=== PATIENT | female | born 1990 | race Caucasian/White ===

== ENCOUNTER 2022-10-12 15:15 | Outpatient (CLI) | payer BC, SELFPAY ==
--- NOTE | ~2022-10-12 | US_ITS ---
EXAMINATION: US OB transvaginal DATE: 10/12/2022 15:48 INDICATION: Early . Viability. TECHNIQUE: Real-time transvaginal pelvic ultrasound was performed. COMPARISON: None. FINDINGS: The uterus measures 10.4 x 5.1 x 5.8 cm. There is an intrauterine gestational sac. A yolk sac is iden tified. The crown rump length measures 7 mm, which correlates with an estimated gestational ag e of 6 weeks and 4 day(s) (+/-) 4 day(s). heart motion is identified measuring 122 beats per mi nute (bpm) by M-mode Doppler. The right ovary is not visualized. The left ovary measures 4.9 x 3.4 x 3.6 cm. There is no free fluid in the pelvis. IMPRESSION: 1. Single living intrauterine gestation with estimated date of delivery of 06/03/2023. Reviewed, dictated and finalized at location A. [employer] IMPRESSION: 1. Single living intrauterine gestation with estimated date of delivery of 05/15.
== END 2022-10-12 15:16 ==
PROVIDERS: Visit Provider Obstetrics & Gynecology Gynecology
DX: O36.80X0 Pregnancy with inconclusive fetal viability, not applicable or unspecified (principal); Z3A.00 Weeks of gestation of pregnancy not specified
CPT/HCPCS: 76817

== ENCOUNTER → 2022-12-31 15:23 | Outpatient (CLI) | payer BC, SELFPAY ==
--- NOTE | ~2022-12-31 | US_ITS ---
EXAMINATION: US OB /maternal detail DATE: 12/31/2022 16:12 INDICATION: Second trimester anatomic survey TECHNIQUE: Real-time ultrasound of the pelvis was performed. COMPARISON: None. FINDINGS: There is a single living fetus in vertex presentation. The placenta is anterior and 7.7 cm from the i nternal cervical os. The cervical length is 2.7 cm. There is a 2.1 cm hypoechoic area situated betwee n the myometrium and placenta anteriorly, likely a fibroid. heart rate is 152 beats per minute (bpm). cardiac activity and movement are noted. The amniotic fluid index is subjectively normal. The outflow tracts of the heart are not visualized. The following anatomy was identified as nor mal: 4 chamber heart 3 vessel cord cord insertion kidneys urinary bladder stomach spine diaphragm ventricles cisterna magna cerebellum The following biometric data were obtained: Biparietal diameter (BPD): 4.1 cm; head circumference (HC): 15.6 cm; abdominal circumference (AC): 13 .3 cm; femur length (FL): 2.7 cm. These measurements are concordant. Estimated weight is 242 g +/- 36 g, which correlates with the 75th percentile when 06/03/2017 is used as estimated date of delivery. As single measurements, these parameters are each equal to the following estimated gestational ages w ith ranges of +/- 2 standard deviations: BPD: 18 weeks 3 days ( 16 weeks 5 days - 20 weeks 1 days). HC: 18 weeks 4 days ( 17 weeks 0 days - 20 weeks 0 days). AC: 18 weeks 6 days ( 16 weeks 5 days - 20 weeks 6 days). FL: 18 weeks 1 days ( 16 weeks 5 days - 19 weeks 3 days). estimated gestational age based solely on measurements from this exam is 18 weeks 4 days +/- 1 weeks 2 days. IMPRESSION: 1. Single living fetus in vertex presentation. 2. Estimated weight is 242 g +/- 36 g, which correlates with the 75th percentile when 06/03/2017 is used as estimated date of delivery. 3. Outflow tracts the heart is not well demonstrated. Reviewed, dictated and finalized at location L. IMPRESSION: 1. Single living fetus in vertex presentation. 2. Estimated weight is 242 g +/- 36 g, which correlates with the 75th per centile when 06/03/2017 is used as estimated date of delivery. 3. Outflow tracts the heart is not well demonstrated.
== END ==
PROVIDERS: PCP Obstetrics & Gynecology Gynecology; Visit Provider Obstetrics & Gynecology Gynecology
DX: Z36.9 Encounter for antenatal screening, unspecified (principal); Z3A.18 18 weeks gestation of pregnancy
CPT/HCPCS: 76805

== ENCOUNTER → 2023-01-28 14:59 | Outpatient (CLI) | payer BC, SELFPAY ==
--- NOTE | ~2023-01-28 | US_ITS ---
EXAMINATION: US OB follow up DATE: 01/28/2023 15:31 INDICATION: survey follow-up TECHNIQUE: Real-time transabdominal obstetric ultrasound. FINDINGS: Comparison to multiple prior studies sequentially, with oldest reviewed study dated 2021. There is a single living fetus in variable presentation. The placenta is anterior without placenta p revia. Placental margin to the cervix is 9 cm. There is a uterine fibroid anteriorly measuring 2.4 cm . Limited survey demonstrates a normal four-chamber heart. cardiac activity and movement is noted with a heart rate of 171 beats per minute. T he amniotic fluid volume is subjectively normal. The following biometric data were obtained: BPD: 55mm corresponds to gestational age 22 weeks 5 days. Head circumference: 202mm corresponds to gestational age 22 weeks 2 days. Abdominal circumference: 168mm corresponds to gestational age 21 weeks 6 days. Femur length: 37mm corresponds to gestational age 21 weeks 4 days. Estimated weight: 452grams +/- 68grams, 33.5%.] IMPRESSION: 1. Single living intrauterine in variable presentation with an estimated gestational age o f 22 weeks 0 days by inititial ultrasound. Appropriate interval growth. 2. Normal placenta. 3: Limited survey demonstrates a normal four-chamber heart. Reviewed, dictated and finalized at location A. IMPRESSION: 1. Single living intrauterine in variable presentation with an estim ated gestational age of 22 weeks 0 days by inititial ultrasound. Appropriate i nterval growth. 2. Normal placenta. 3: Limited survey demonstrates a normal four-chamber heart.
== END ==
PROVIDERS: PCP Obstetrics & Gynecology Gynecology; Visit Provider Obstetrics & Gynecology Gynecology
DX: Z36.2 Encounter for other antenatal screening follow-up (principal); Z3A.22 22 weeks gestation of pregnancy
CPT/HCPCS: 76816

== ENCOUNTER 2023-03-20 11:02 | Outpatient (CLI) | payer BC, SELFPAY ==
[2023-03-20 14:06] LABS: Alanine Aminotransferase 31 U/L (6-35); Albumin Level 4.2 g/dL (3.5-5.1); Alkaline Phosphatase 96 U/L (38-126); Anion Gap 10 mmol/L (8-16); Aspartate Amino Transferase 39 U/L (14-36); Bilirubin,Total 0.3 mg/dL (0.2-1.3); Blood Urea Nitrogen 10 mg/dL (7-17); Calcium 9.8 mg/dL (8.4-10.2); Carbon Dioxide 20 mmol/L (22-30); Chloride 104 mmol/L (98-107); Estimated Glomerular Filt Rate > 60; Glucose 93 mg/dL (65-110); Potassium 4.2 mmol/L (3.4-5.0); Sodium 134 mmol/L (137-145); Uric Acid 6.2 mg/dL (2.5-7.5)
[2023-03-20 15:03] LABS: Hematocrit 38.8 % (37.0-47.0); Mean Corpuscular HGB Conc 33.5 g/dl (32-36); Mean Corpuscular Hemoglobin 29.3 pg (26-34); Mean Corpuscular Volume 87.4 fl (80-100); Mean Platelet Volume 12.6 fl (7.4-10.4); Platelet Count Result 255 k/mm3 (150-375); Red Blood Count 4.44 M/mm3 (4.2-5.4); Red Cell Distribution Width 13.2 % (11.5-14.5)
== END 2023-03-20 11:03 | disposition home or self-care (01) ==
LOC: ANHLAB 11:04
PROVIDERS: PCP Obstetrics & Gynecology Gynecology; Visit Provider Obstetrics & Gynecology Gynecology
DX: O99.891 Other specified diseases and conditions complicating pregnancy (principal); Z3A.00 Weeks of gestation of pregnancy not specified
CPT/HCPCS: 36415; 80053; 84550; 85027

== ENCOUNTER 2023-03-22 08:21 | Outpatient (CLI) | payer BC, SELFPAY ==
[2023-03-22 09:21] LABS: Alanine Aminotransferase 28 U/L (6-35); Alkaline Phosphatase 90 U/L (38-126); Anion Gap 7 mmol/L (8-16); Aspartate Amino Transferase 33 U/L (14-36); Bilirubin,Total 0.3 mg/dL (0.2-1.3); Blood Urea Nitrogen 11 mg/dL (7-17); Calcium 9.5 mg/dL (8.4-10.2); Carbon Dioxide 22 mmol/L (22-30); Chloride 106 mmol/L (98-107); Estimated Glomerular Filt Rate > 60; Glucose 101 mg/dL (65-110); Potassium 4.3 mmol/L (3.4-5.0); Sodium 135 mmol/L (137-145); Uric Acid 5.6 mg/dL (2.5-7.5)
[2023-03-22 09:33] LABS: Hematocrit 37.9 % (37.0-47.0); Hemoglobin 12.8 g/dL (12.0-15.0); Mean Corpuscular HGB Conc 33.8 g/dl (32-36); Mean Corpuscular Volume 85.9 fl (80-100); Platelet Count Result 220 k/mm3 (150-375); Red Blood Count 4.41 M/mm3 (4.2-5.4); Red Cell Distribution Width 13.2 % (11.5-14.5); White Blood Count 15.3 K/mm3 (4.5-10.0)
[2023-03-22 09:56] LABS: Collection Time Urine 24 HOURS
[2023-03-22 12:04] LABS: Total Protein Urine Random 12 mg/dL
[2023-03-22 12:08] LABS: Creatinine Urine 51.2 mg/dL; Patient Weight 130 Lbs
[2023-03-22 12:54] LABS: Total Protein Urine 24 Hr 372 mg/24hr (28-141); Total Volume 24 Hour Urine 3100 ml
[2023-03-22 12:54] LABS: Creatinine Clearance Urine 290.4 ml/min (75-125); Total Volume 24 Hour Urine 3100 ml
== END 2023-03-22 08:22 | disposition home or self-care (01) ==
LOC: ANHLAB 08:27
PROVIDERS: PCP Obstetrics & Gynecology Gynecology; Visit Provider Obstetrics & Gynecology Gynecology
DX: R79.9 Abnormal finding of blood chemistry, unspecified (principal); O99.891 Other specified diseases and conditions complicating pregnancy; Z3A.00 Weeks of gestation of pregnancy not specified
CPT/HCPCS: 36415; 80053; 81050; 82570; 82575; 84156; 84550; 85027

== ENCOUNTER 2023-03-22 15:16 | Outpatient (CLI) | payer BC, SELFPAY ==
--- NOTE | ~2023-03-22 | US_ITS ---
EXAMINATION: US OB BPP wo non-stress DATE: 03/22/2023 16:57 INDICATION: Hypertension and gestational diabetes, second trimester TECHNIQUE: Real-time pelvic ultrasound was performed. The interpreting radiologist was not present fo r the study. COMPARISON: None. FINDINGS: There is a single living fetus in breech presentation. The placenta is anterior. heart rate is 141 beats per minute (bpm). The amniotic fluid index is 24.9 cm. Biophysical profile performed by the technologist: breathing (30 sec sustained breathing in 30 minutes): 2 out of 2 movement (3 gross body movements in 30 minutes): 2 out of 2 tone (one episode of vktuylw-ornyplfyr-dngczro limb movement): 2 out of 2 Amniotic fluid pocket (2 cm): 2 out of 2 Total score: 8 out of 8 IMPRESSION: 1. Single living fetus in breech presentation. 2. Biophysical profile 8 out of 8. Reviewed, dictated and finalized at location F.
[2023-03-22 16:02] VITALS: BP 143/78; PULSE 83
[2023-03-22 16:16] VITALS: BP 129/65; PULSE 87
[2023-03-22 17:20] VITALS: BP 143/78; PULSE 83
== END 2023-03-22 17:10 | disposition home or self-care (01) ==
LOC: ANHOBOP 15:23 → ANHOBPP 15:24
PROVIDERS: Visit Provider Obstetrics & Gynecology Gynecology
DX: O13.9 Gestational [pregnancy-induced] hypertension without significant proteinuria, unspecified trimester (principal); Z3A.00 Weeks of gestation of pregnancy not specified
CPT/HCPCS: 59025; 76819; 99199

== ENCOUNTER 2023-05-12 18:10 | Outpatient (RCR) | payer BC, SELFPAY ==
[2023-03-26 11:13] VITALS: BP 123/67; PULSE 85
[2023-03-29 13:31] VITALS: BP 152/80; PULSE 90
[2023-03-29 13:46] VITALS: BP 143/66; PULSE 89
[2023-03-29 14:01] VITALS: BP 147/69; PULSE 89
[2023-03-29 14:35] VITALS: BP 143/66; PULSE 89
[2023-04-02 11:22] VITALS: BP 130/66; PULSE 84
[2023-04-05 11:23] VITALS: BP 123/67; PULSE 84
[2023-04-13 12:20] VITALS: BP 131/71; PULSE 80
[2023-04-16 11:53] VITALS: BP 134/71; PULSE 78
[2023-04-19 12:00] VITALS: BP 130/62; PULSE 81
[2023-04-23 11:39] VITALS: BP 134/68; PULSE 81
[2023-04-26 11:55] VITALS: BP 131/66; PULSE 78
[2023-04-30 11:31] VITALS: BP 133/82; PULSE 75
[2023-04-30 11:41] VITALS: BP 133/82; PULSE 79
[2023-05-03 11:57] VITALS: BP 129/66; PULSE 80
[2023-05-07 11:40] VITALS: BP 126/72; PULSE 78
[2023-05-10 11:52] VITALS: BP 126/83; PULSE 79
--- NOTE | ~2023-05-12 | US_ITS ---
EXAMINATION: US OB BPP wo non-stress DATE: 05/10/2023 12:20 INDICATION: Hypertension during third trimester . TECHNIQUE: Real-time pelvic ultrasound was performed. The interpreting radiologist was not present fo r the study. COMPARISON: 05/03/2023 FINDINGS: There is a single living fetus in vertex presentation. The placenta is anterior. heart rate is 128 beats per minute (bpm). Biophysical profile performed by the technologist: breathing (30 sec sustained breathing in 30 minutes): 2 out of 2 movement (3 gross body movements in 30 minutes): 2 out of 2 tone (one episode of uvzdnos-ymvixoryp-hdnaaaw limb movement): 2 out of 2 Amniotic fluid pocket (2 cm): 2 out of 2 Total score: 8 out of 8 IMPRESSION: 1. Single living fetus in vertex presentation with heart rate of 128 bpm. 2. Biophysical profile 8 out of 8. Reviewed, dictated and finalized at location A.
--- NOTE | ~2023-05-12 | US_ITS ---
EXAMINATION: US OB BPP wo non-stress DATE: 03/29/2023 14:28 CDT INDICATION: Preeclampsia TECHNIQUE: Real-time transabdominal obstetric ultrasound. FINDINGS: Comparison to 03/22/2023 There is a single living fetus in transverse left presentation. The placenta is anterior. cardiac activity and movement is noted with a heart rate of 153 beats per minute. Biophysical profile: breathin of 2 movement: 2 of 2 tone: 2 of 2 Amniotic flud pocket: 2 of 2 Total score: 8 of 8 IMPRESSION: 1. Single living intrauterine in transverse left presentation. 2: Total biophysical profile score of 8/8. Reviewed, dictated and finalized at location []
--- NOTE | ~2023-05-12 | US_ITS ---
EXAMINATION: US OB BPP wo non-stress DATE: 05/03/2023 11:56 INDICATION: Gestational diabetes. Preeclampsia. Third trimester. TECHNIQUE: Real-time pelvic ultrasound was performed. COMPARISON: Ultrasound 04/26/2023 FINDINGS: There is a single living fetus in vertex presentation. The placenta is anterior. heart rate is 133 beats per minute (bpm). Biophysical profile performed by the technologist: breathing (30 sec sustained breathing in 30 minutes): 2 out of 2 movement (3 gross body movements in 30 minutes): 2 out of 2 tone (one episode of lobzfxm-gnclbpvdo-uftorlg limb movement): 2 out of 2 Amniotic fluid pocket (2 cm): 2 out of 2 Total score: 8 out of 8 IMPRESSION: 1. Single living fetus in vertex presentation. 2. Biophysical profile 8 out of 8. Reviewed, dictated and finalized at location A.
--- NOTE | ~2023-05-12 | US_ITS ---
EXAMINATION: US OB BPP wo non-stress DATE: 04/05/2023 11:26 CDT INDICATION: Gestational diabetes TECHNIQUE: Real-time transabdominal obstetric ultrasound. FINDINGS: 03/29/2023 There is a single living fetus in vertex presentation. The placenta is anterior without placenta pre via. cardiac activity and movement is noted with a heart rate of 157 beats per minute. Biophysical profile: breathin of 2 movement: 2 of 2 tone: 2 of 2 Amniotic flud pocket: 2 of 2 Total score: 8 of 8 IMPRESSION: 1. Single living intrauterine in vertex presentation. 2: Total biophysical profile score of 8/8. Reviewed, dictated and finalized at location []
--- NOTE | ~2023-05-12 | US_ITS ---
EXAMINATION: US OB BPP wo non-stress DATE: 04/19/2023 11:58 INDICATION: Preeclampsia. Gestational diabetes. Third trimester. TECHNIQUE: Real-time pelvic ultrasound was performed. COMPARISON: Ultrasound 04/13/2023 FINDINGS: There is a single living fetus in vertex presentation. The placenta is anterior and fundal. he art rate is 139 beats per minute (bpm). The deepest vertical pocket is 6.0 cm. Biophysical profile performed by the technologist: breathing (30 sec sustained breathing in 30 minutes): 2 out of 2 movement (3 gross body movements in 30 minutes): 2 out of 2 tone (one episode of hqzrekm-wdqkljttv-ipyzmof limb movement): 2 out of 2 Amniotic fluid pocket (2 cm): 2 out of 2 Total score: 8 out of 8 IMPRESSION: 1. Single living fetus in vertex presentation. 2. Biophysical profile 8 out of 8. Reviewed, dictated and finalized at location A.
--- NOTE | ~2023-05-12 | US_ITS ---
EXAMINATION: US OB BPP wo non-stress DATE: 04/13/2023 12:16 INDICATION: Gestational diabetes, preeclampsia, third trimester TECHNIQUE: Real-time pelvic ultrasound was performed. The interpreting radiologist was not present fo r the study. COMPARISON: 04/05/2023 FINDINGS: There is a single living fetus in vertex presentation. The placenta is anterior. heart rate is 137 beats per minute (bpm). Biophysical profile performed by the technologist: breathing (30 sec sustained breathing in 30 minutes): 2 out of 2 movement (3 gross body movements in 30 minutes): 2 out of 2 tone (one episode of ylschjt-mxdlwqtff-idoaios limb movement): 2 out of 2 Amniotic fluid pocket (2 cm): 2 out of 2 Total score: 8 out of 8 IMPRESSION: 1. Single living fetus in vertex presentation. 2. Biophysical profile 8 out of 8. Reviewed, dictated and finalized at location A.
--- NOTE | ~2023-05-12 | US_ITS ---
EXAMINATION: US OB BPP wo non-stress DATE: 04/26/2023 11:58 INDICATION: Gestational diabetes, third trimester TECHNIQUE: Real-time pelvic ultrasound was performed. The interpreting radiologist was not present fo r the study. COMPARISON: None. FINDINGS: There is a single living fetus in vertex presentation. The placenta is anterior. heart rate is 152 beats per minute (bpm). Biophysical profile performed by the technologist: breathing (30 sec sustained breathing in 30 minutes): 2 out of 2 movement (3 gross body movements in 30 minutes): 2 out of 2 tone (one episode of jqevcpr-uujowjyae-vundxcb limb movement): 2 out of 2 Amniotic fluid pocket (2 cm): 2 out of 2 Total score: 8 out of 8 IMPRESSION: 1. Single living fetus in vertex presentation. 2. Biophysical profile 8 out of 8. Reviewed, dictated and finalized at location B.
[2023-05-12 18:46] VITALS: BP 137/83; PULSE 67
== END 2023-06-24 23:59 | disposition home or self-care (01) ==
LOC: ANHOBOP 18:10
PROVIDERS: Visit Provider Obstetrics & Gynecology Gynecology
DX: O14.93 Unspecified pre-eclampsia, third trimester (principal); Z3A.30 30 weeks gestation of pregnancy; Z3A.31 31 weeks gestation of pregnancy; Z3A.33 33 weeks gestation of pregnancy; Z3A.34 34 weeks gestation of pregnancy; Z3A.35 35 weeks gestation of pregnancy; Z3A.36 36 weeks gestation of pregnancy; Z3A.37 37 weeks gestation of pregnancy
CPT/HCPCS: 59025; 76819; J2175

== ENCOUNTER 2023-05-14 16:42 | Inpatient (IN) | payer BC, OTHER, SELFPAY ==
[2023-05-14] VITALS (38 sets, daily range): BP systolic 127–152; BP diastolic 55–88; PULSE 25–101; TEMP 36.8–36.9; O2SAT 95–100; BMI 46.5
--- NOTE | ~2023-05-14 | XR_ITS ---
EXAMINATION: XR abdomen/kub 1V DATE: 05/15/2023 13:57 INDICATION: No instrument count prior to surgery. TECHNIQUE: A supine view of the abdomen was obtained. COMPARISON: None. FINDINGS: There are no dilated loops of bowel. There is no radiopaque foreign body. IMPRESSION: 1. No radiopaque foreign body. Reviewed, dictated and finalized at location B.
[2023-05-14 17:23] LABS: Basophils Absolute Auto 0.1 K/mm3 (0.0-0.1); Basophils Percent Auto 0.5 % (0.2-1.2); Eosinophils Absolute Auto 0.3 K/mm3 (0-0.3); Eosinophils Percent Auto 1.8 % (0-4.4); Hematocrit 38.8 % (37.0-47.0); Hemoglobin 13.1 g/dL (12.0-15.0); Immature Granulocyte Absolute 0.16 K/mm3 (0.00-0.031); Immature Granulocyte Percent A 0.9 % (0-0.5); Immature Platelet Fraction Pct 17.2 % (0.9-11.2); Lymphocytes Absolute Auto 2.51 K/mm3 (0.9-3.2); Lymphocytes Percent Auto 14.8 % (18.3-44.2); Mean Corpuscular HGB Conc 33.8 g/dl (32-36); Mean Corpuscular Hemoglobin 29.4 pg (26-34); Mean Corpuscular Volume 87.2 fl (80-100); Mean Platelet Volume 13.2 fl (7.4-10.4); Monocytes Absolute Auto 1.3 K/mm3 (0.1-0.6); Monocytes Percent Auto 7.6 % (2.6-8.5); Neutrophils Absolute Auto 12.6 K/mm3 (1.3-6.7); Neutrophils Percent Auto 74.4 % (45.5-73.1); Platelet Count Result 214 k/mm3 (150-375); Red Blood Count 4.45 M/mm3 (4.2-5.4); Red Cell Distribution Width 14.4 % (11.5-14.5); White Blood Count 16.9 K/mm3 (4.5-10.0)
--- NOTE | 2023-05-14 17:34 | WPDOBADMIT ---
Obstetrics - Admit Note Admission Note: record reviewed. No pertinent additions to the history and/or any subsequent changes in the physical findings that are not consistent with the expected course of the were found. Additions to the history and/or subsequent changes in the physical findings follow. None.
--- NOTE | 2023-05-14 17:34 | PM.IMHP ---
H&P: HPI History of Present Illness Date/Time: 05/14/23 17:34 Chief Complaint: Narrative: Pt is a 32y.o. at 37 weeks 3 days gestation. She presents for IOL 2/2 Preeclampsia and GDMA2. She is resting comfortably in bed. Partner present and supportive. Review of Systems Review of Systems: Feeling good movement and occasional pelvic pressure. Denies vaginal bleeding or leaking of fluid All systems reviewed & are unremarkable except as noted in HPI and below PMFSH Family History Family History (Updated 05/01/23 @ 12:36 by Toya Johnson RN) Mother Cancer Sibling Thyroid cancer Social History Social History Substance use: never Spiritual care concerns: No Meds Home Medications and Allergies Home Medications Medication Instructions Recorded Confirmed Type aspirin 81 mg chewable tablet 81 mg PO DAILY 04/05/23 05/01/23 History insulin NPH isoph U-100 human 100 30 unit subcut HS 04/05/23 05/01/23 History unit/mL (3 mL) subcutaneous pen (Novolin N FlexPen) vit no.95-ferrous 1 tablet PO DAILY 04/05/23 05/01/23 History fumarate 28 mg-folic acid 800 mcg tablet () Allergies Allergy/AdvReac Type Severity Reaction Status Date / Time eggplant AdvReac Other Verified 05/01/23 12:27 Vital Signs Vital Signs - 24 hr 05/14/23 17:15 Pulse Rate 82 Blood Pressure 152/72 H Exam Const: General: comfortable and no acute distress HENMT: Mouth: Yes moist mucous membranes Eyes: General: appearance normal, both eyes and all related structures Resp: Effort & Inspection: normal respiratory effort Cardio: Rate: regular rate GI: GI Palp: Yes Soft to palpation Other: Gravid : General: Yes bladder normal to palpation Skin: General skin exam: normal color and no rashes or lesions noted Neuro: General: gait normal and deep tendon reflexes 2+ bilaterally Speech: normal speech Sensory Exam: normal sensation Extrem: General: normal to inspection Psych: Mental Status: mental status grossly normal Affect: normal affect H&P: Results Labs Labs: Short CBC 05/14/23 Range/Units 17:15 WBC 16.9 H (4.5-10.0) K/mm3 Hgb 13.1 (12.0-15.0) g/dL Hct 38.8 (37.0-47.0) % Plt Count 214 (150-375) k/mm3 Assessment and Plan Assessment and plan (1) Pre-eclampsia affecting childbirth: Code(s): O14.94 - Unspecified pre-eclampsia, complicating childbirth Status: Acute (2) Gestational diabetes mellitus (GDM) affecting : Code(s): O24.419 - Gestational diabetes mellitus in , unspecified control Status: Acute (3) PCOS (polycystic ovarian syndrome): Code(s): E28.2 - Polycystic ovarian syndrome Status: Acute (4) Depression affecting : Code(s): O99.340 - Other mental disorders complicating , unspecified trimester; F32.A - Depression, unspecified Status: Acute (5) Anxiety: Code(s): F41.9 - Anxiety disorder, unspecified Status: Acute (6) Uterine fibroid: Code(s): D25.9 - Leiomyoma of uterus, unspecified Status: Acute Quality If No VTE Prophylaxis Answer both mechanical and pharmacologic: Reason no pharmacologic proph: low risk/not indicated
--- NOTE | 2023-05-14 18:06 | PM.OBPNLAB ---
Pain Control Date/time seen: 05/14/23 1730. CNM to bedside. Pt comfortable. Denies regular ctx, cramping, bleeding, or loss of fluid. Pain control: tolerating well Pelvic Exam Dilation (cm): 1 (Fingertip) Effacement (%): 50 station: -3 Amniotic membrane status: Intact Contractions Monitor mode: External Contraction frequency: 0 Contraction pattern: Absent Status status: Category l Assessment and Plan Assessment: induction ongoing Comments: CNM to bedside. Plan of care discussed. discussed option of placing a catheter/Jurado balloon for induction of labor and patient is agreeable. Bedside ultrasound performed and reveals fetus in vertex presentation. SVE performed and cervix is fingertip/ 50/-3 and moderate consistency. attempted to place Cook catheter through cervix but unable to advance. Jurado balloon and stylette brought to room. Jurado balloon dissecting placed and advanced through the cervix to the internal os. Catheter inflated with 60 mL sterile saline. During this process rupture of membranes with clear fluid was noted. Plan to evaluate contraction pattern in 1-2 hours her know. If no regular uterine contractions are present planned for 25 mcg of buccal Cytotec q4 hours. 1st BP mild range. CBC WNL. Denies MIRANDA, visual changes, RUQ pain. Dr. Barrientos updated.
[2023-05-14 19:02] LABS: Glucose Point of Care 90 mg/dl (65-105)
--- NOTE | 2023-05-14 19:06 | WPDANESEPP ---
Anes - Eval Pre Procedure Procedure: labor epidural Date/Time: 05/14/23 19:06 Pre Op Diagnosis: Preeclampsia/Gestational Diabetes Patient Data Age: 32 Gender: F Height: 1.65 m Weight: 127 kg Last Vital Signs Pulse 68 05/14/23 19:01 BP 150/78 H 05/14/23 19:01 Allergies Allergy/AdvReac Type Severity Reaction Status Date / Time eggplant AdvReac Other Verified 05/01/23 12:27 Home Medications Medication Instructions Recorded Confirmed Type aspirin 81 mg chewable tablet 81 mg PO DAILY 04/05/23 05/01/23 History insulin NPH isoph U-100 human 100 30 unit subcut HS 04/05/23 05/01/23 History unit/mL (3 mL) subcutaneous pen (Novolin N FlexPen) vit no.95-ferrous 1 tablet PO DAILY 04/05/23 05/01/23 History fumarate 28 mg-folic acid 800 mcg tablet () ergocalciferol (vitamin D2) 1,250 1,250 mcg PO [id number] 05/14/23 05/14/23 History mcg (50,000 unit) capsule Laboratory Tests 05/14/23 05/14/23 17:15 18:49 WBC 16.9 H K/mm3 (4.5-10.0) RBC 4.45 M/mm3 (4.2-5.4) Hgb 13.1 g/dL (12.0-15.0) Hct 38.8 % (37.0-47.0) MCV 87.2 fl (80-100) MCH 29.4 pg (26-34) MCHC 33.8 g/dl (32-36) RDW 14.4 % (11.5-14.5) Plt Count 214 k/mm3 (150-375) MPV 13.2 H fl (7.4-10.4) Immature Gran % (Auto) 0.9 H % (0-0.5) Neut % (Auto) 74.4 H % (45.5-73.1) Lymph % (Auto) 14.8 L % (18.3-44.2) [place] % (Auto) 7.6 % (2.6-8.5) Eos % (Auto) 1.8 % (0-4.4) Baso % (Auto) 0.5 % (0.2-1.2) Lymph # (Auto) 2.51 K/mm3 (0.9-3.2) [place] # (Auto) 1.3 H K/mm3 (0.1-0.6) Eos # (Auto) 0.3 K/mm3 (0-0.3) Baso # (Auto) 0.1 K/mm3 (0.0-0.1) Abs Immat Gran (auto) 0.16 H K/mm3 (0.00-0.031) Absolute Neuts (auto) 12.6 H K/mm3 (1.3-6.7) Absolute Nucleated RBC 0.0 K/mm3 (0.0-0.012) Nucleated RBC % 0.0 % (0.0-0.2) % Immature Plt Fraction 17.2 H % (0.9-11.2) POC Capillary Glucose 90 mg/dl (65-105) RPR Pending Blood Type O Positive Antibody Screen Negative Patient hx anesthesia problems: none Family hx anesthesia problems: none Results Review: All pre-operative results and documents have been reviewed as part of the pre-operative evaluation. [facility] Family History Family History Mother Cancer Sibling Thyroid cancer Social History Social History Smoking status: Never smoker Second hand tobacco smoke exposure: No Substance use: never Lack of Transportation: No Lack of Food: Never True Current Housing: I Have Housing Concerned About Future Housing: No Difficulty Paying Gas/Electric Bills: No Difficulty Paying for Meds: No Currently Unemployed: No Education: Bachelor's Degree Difficulty w/ Childcare or Family Care: No Spiritual care concerns: No Exam Day of Procedure 05/14/23 19:06 Patient weight: morbidly obese Heart: regular rate and rhythm Lungs: normal air movement Airway: Mallampati scale Neurological: alert and oriented
[2023-05-14] MEDS: fentaNYL CITRATE INJ (*CRX) 100 MCG/2 ML VIAL 50 MCG IV PUSH (20:27)
[2023-05-14 23:06] LABS: Glucose Point of Care 140 mg/dl (65-105)
[2023-05-14] MEDS: INSULIN HUMAN NPH (*BKC) 100 UNITS/ML 30 UNITS SUB-Q (23:11)
[2023-05-15] VITALS (91 sets, daily range): BP systolic 68–161; BP diastolic 30–106; PULSE 70–151; RESP 18–20; TEMP 36.2–37.5; O2SAT 93–100
[2023-05-15 03:57] LABS: Glucose Point of Care 130 mg/dl (65-105)
[2023-05-15] MEDS: OXYTOCIN 30 UNITS/NS 500 ML 30 UNITS/500 ML BAG IV CONT (05:05)
[2023-05-15] MEDS: LACTATED RINGERS 1,000 ML 125 ML IV CONT ×2 (05:05→11:20)
[2023-05-15 06:53] LABS: Glucose Point of Care 110 mg/dl (65-105)
--- NOTE | 2023-05-15 07:44 | PM.OBPNLAB ---
Pain Control Date/time seen: 05/15/23 07:10 Pain control: tolerating well Comments: Overnight, mueller balloon expelled and pt had ctx without cytotec or pitocin. Once ctx became less frequent, pitocin was started. Blood sugars monitored and NPH given. CNM was called by RN with one episode of FHT deceleration after pt ambulated back from bathroom. Pt reports feeling increasing uterine cramping and contractions in her abdomen and back. She denies MIRANDA, visual changes, RUQ pain, or edema. Pelvic Exam Dilation (cm): 5 (Fingertip) Effacement (%): 75 station: -3 Amniotic membrane status: Ruptured Comments: clear to pink fluid Contractions Monitor mode: External Contraction frequency: 4 Contraction duration: 90 Contraction pattern: Regular Contraction phase: Contraction Contraction intensity: Moderate Status status: Category l Assessment and Plan Pitocin rate (mU/min): 4 Assessment: induction ongoing Comments: CNM to bedside. Discussed plan of care with the call and her partner. Recommend cervical exam to evaluate labor status. Discussed option of placing IUPC if cervix is unchanged and patient is agreeable. SVE performed and cervix was found to be unchanged, IUPC placed easily and clear/ light pink amniotic fluid returned. plan to titrate Pitocin as needed to achieve adequate contraction pattern. Anticipate vaginal . Dr. Barrientos updated.
[2023-05-15 09:21] LABS: Rapid Plasma Reagin Non-Reactive (NonReactive)
[2023-05-15 10:05] LABS: Glucose Point of Care 115 mg/dl (65-105)
[2023-05-15 10:05] LABS: Glucose Point of Care 117 mg/dl (65-105)
[2023-05-15 12:22] LABS: Glucose Point of Care 95 mg/dl (65-105)
[2023-05-15] MEDS: SODIUM CHLORIDE 0.9% IV 300 ML 600 ML I-UTERINE (12:35)
--- NOTE | 2023-05-15 13:35 | P.PNOB_ITS ---
Pain Control Date/time seen: 05/15/23 13:35 Comments: See A/P note below Pelvic Exam Dilation (cm): 5 (Fingertip) Effacement (%): 75 station: -3 Amniotic membrane status: Ruptured Status status: Category lll Assessment and Plan Comments: CNM in office and observing tracing intermittently. Observed lack of FHTs at 1249. Called L&D while simultaneously leaving office. Asked staff if needed CNM at bedside and was told yes. CNM to pt room at about [id number]. Pt positioned on right side and FSE tracing FHTs in the 50s-60s. SVE performed and cervix remained 5cm. Palpated around head to the best of CNM's ability for pr esence of umbilical cord. No cord palpated. head better applied to cervix than with prior exam. FSE placement verified to scalp. Amniotic fluid remains clear/light pink tinged. Pitocin off, non-rebreather to pt face. Pt repositioned to hands and knees with no improvement in FHTs. CNM determined need for emergency delivery. Called Dr. Alcantar at [phone]. en route from office. Called Dr. Haley at [phone] and requested provider to OR for emergent . Discussed plan of care with pt and her family. Assisted with staff in pt transfer to OR. Dr. Haley arrived quickly and pt delivered by . See Delivery note.
--- NOTE | 2023-05-15 16:56 | W.PM.PROC2 ---
Procedure Note - Detailed Date of Procedure 05/15/23 Pre-op Diagnosis 1. bradycardia 2.Preeclampsia/Gestational Diabetes Post-op Diagnosis Same Procedure Performed Primary low-transverse section Surgeon Josh Haley MD Anesthesia Epidural Indications Category 3 tracing bradycardia. I was called by TAMMIE Duran with request to perform stat on her patient with bradycardia over ten minutes to 50-60s, Cat 3 tracing remote from delivery. Dr. Barrientos was en route, not immediately available. Patient was being taken to OR when I arrived. I informed her of need for and risk/benefit. Findings Male infant nuchal cord loose x2 small for gestational age. Normal fallopian tubes and ovaries several subserosal fibroids. Approximately 3 cm. Male infant 2280gm, apgars 6,8. Description of Procedure The patient was taken to the operating room where she was placed in the dorsal lithotomy position with leftward tilt. After the prior placed epidural anesthesia was found to be adequate, she was then prepped and draped in the usual sterile fashion. A Pfannenstiel skin incision was made with a scalpel and carried through to the underlying layer of fascia. The fascia was then nicked in the midline, extending bilaterally. The fascia was dissected off the rectus muscles bluntly and sharply, superiorly and inferiorly. The rectus muscles were in the midline, and peritoneum was identified and entered bluntly. The pelvic organs were visualized. The bladder blade was then inserted. Bladder was retracted. The low transverse uterine incision was then made with the scalpel and extended with bilateral index fingers in a crescent-shaped fashion. The head was delivered. Two loose nuchal cords were reduced manually. The rest of the baby was delivery and cord doubly clamped and cut and handed to peds in attendance. The placenta was then delivered manually. The uterine cavity was sponge curretted. The uterus was then exteriorized. The uterine incision was then closed with 0 vicryl in a running locked fashion. A figure of eight of 0 vicryl at the right of incision was used for hemostasis. Hemostasis noted. A second layer of 0 vicryl was used in an imbricating fashion for hemostasis. Posterior cul de sac was irrigated. The uterus was then returned to the abdomen. Bilateral gutters were cleared off all clots and debris. The uterine incision was inspected and noted to be hemostatic. The rectus muscle bellies were inspected and noted to be hemostatic. At this time Dr. Barrientos arrived and completed the procedure. The fascia was closed with O vicryl and the skin was with 4.0 vicryl. An instrument count was not performed prior to the surgery therefore an abdominal xray was performed and radiology reported abdomen clear, no foreign objects. The patient was taken to the recovery room in stable condition. Estimated Blood Loss -595.0 Drains No Packing No Pathology Yes (Placenta and cord) Complications No immediate complications Condition Stable Disposition Floor
[2023-05-15] MEDS: DEXTROSE 5%/0.45% SOD CHL 1,000 ML 125 ML IV CONT (17:22)
[2023-05-15] MEDS: SIMETHICONE 80 MG TAB.CHEW PO (17:23)
[2023-05-15] MEDS: KETOROLAC 30 MG/ML VIAL (*BKC) IV PUSH (17:23)
[2023-05-15] MEDS: DOCUSATE SODIUM 100 MG CAPSULE PO (17:24)
[2023-05-16] MEDS: KETOROLAC 30 MG/ML VIAL (*BKC) IV PUSH (00:10)
[2023-05-16] MEDS: HYDROcodone/acetaminophen (*CRX) 5-325 MG TABLET 1 TAB PO ×3 (03:28→20:52)
[2023-05-16 04:00] VITALS: BP 132/59; PULSE 81; RESP 18; TEMP 37.1; O2SAT 100
[2023-05-16 04:36] LABS: Basophils Absolute Auto 0.1 K/mm3 (0.0-0.1); Basophils Percent Auto 0.3 % (0.2-1.2); Eosinophils Absolute Auto 0.1 K/mm3 (0-0.3); Eosinophils Percent Auto 0.6 % (0-4.4); Hematocrit 32.2 % (37.0-47.0); Hemoglobin 10.4 g/dL (12.0-15.0); Immature Granulocyte Absolute 0.12 K/mm3 (0.00-0.031); Immature Granulocyte Percent A 0.7 % (0-0.5); Immature Platelet Fraction Pct 18.1 % (0.9-11.2); Lymphocytes Absolute Auto 1.73 K/mm3 (0.9-3.2); Lymphocytes Percent Auto 9.8 % (18.3-44.2); Mean Corpuscular HGB Conc 32.3 g/dl (32-36); Mean Corpuscular Hemoglobin 29.1 pg (26-34); Mean Corpuscular Volume 89.9 fl (80-100); Mean Platelet Volume 14.3 fl (7.4-10.4); Monocytes Absolute Auto 1.3 K/mm3 (0.1-0.6); Monocytes Percent Auto 7.3 % (2.6-8.5); Neutrophils Absolute Auto 14.4 K/mm3 (1.3-6.7); Neutrophils Percent Auto 81.3 % (45.5-73.1); Platelet Count Result 153 k/mm3 (150-375); Red Blood Count 3.58 M/mm3 (4.2-5.4); Red Cell Distribution Width 14.6 % (11.5-14.5); White Blood Count 17.7 K/mm3 (4.5-10.0)
[2023-05-16] MEDS: LORATADINE 10 MG TABLET PO (05:05)
[2023-05-16] MEDS: IBUPROFEN 600 MG TABLET PO ×2 (06:48→20:52)
[2023-05-16 07:40] VITALS: BP 129/71; PULSE 94; RESP 18; TEMP 36.9; O2SAT 97
--- NOTE | 2023-05-16 07:47 | PM.OBPNVD ---
OB - PN: Subj Subjective Date/time seen: 05/16/23 07:47 Patient comments: no complaints and pain well controlled baby status: doing well OB - PN: Obj Data Labs 05/16/23 02:51 Labs: Laboratory Results - last 24 hr 05/14/23 05/15/23 05/15/23 17:15 08:39 09:36 WBC RBC Hgb Hct MCV MCH MCHC RDW Plt Count MPV Immature Gran % (Auto) Neut % (Auto) Lymph % (Auto) Mccracken % (Auto) Eos % (Auto) Baso % (Auto) Lymph # (Auto) Mccracken # (Auto) Eos # (Auto) Baso # (Auto) Abs Immat Gran (auto) Absolute Neuts (auto) Absolute Nucleated RBC Nucleated RBC % % Immature Plt Fraction POC Capillary Glucose 117 H 115 H RPR Non-reactive 05/15/23 05/16/23 12:19 02:51 WBC 17.7 H RBC 3.58 L Hgb 10.4 L Hct 32.2 L MCV 89.9 MCH 29.1 MCHC 32.3 RDW 14.6 H Plt Count 153 MPV 14.3 H Immature Gran % (Auto) 0.7 H Neut % (Auto) 81.3 H Lymph % (Auto) 9.8 L Mccracken % (Auto) 7.3 Eos % (Auto) 0.6 Baso % (Auto) 0.3 Lymph # (Auto) 1.73 Mccracken # (Auto) 1.3 H Eos # (Auto) 0.1 Baso # (Auto) 0.1 Abs Immat Gran (auto) 0.12 H Absolute Neuts (auto) 14.4 H Absolute Nucleated RBC 0.0 Nucleated RBC % 0.0 % Immature Plt Fraction 18.1 H POC Capillary Glucose 95 RPR Imaging Radiologist's impression: Impressions Abdomen X-Ray 05/15/23 13:59 IMPRESSION: 1. No radiopaque foreign body. OB - PN A/P Plan day: 1 Plan: routine care Time Spent With Patient Time: Total time spent is greater than 50% in coordination of care (as documented) at patient's floor/unit and/or counseling patient: Exam Narrative: inc c/d/i : Bimanual exam- vagina & uterus: other (Uterus firm, nt @U)
--- NOTE | 2023-05-16 08:12 | WPDANLDPN2 ---
Anes-Prog Note L&D Date/Time: 05/16/23 08:12 Comfortable throughout: labor and section Neuraxial method: epidural Epidural/Spinal procedure site: clean & non-tender Neuro status: Neuro function grossly intact. Cardiovascular status: normal Respiratory status: normal Airway patency: baseline Mental status: baseline Post-Op hydration status: normal Vital Signs: Last Vital Signs Temp 37.1 C 05/16/23 04:00 Pulse 81 05/16/23 04:00 Resp 18 05/16/23 04:00 BP 132/59 L 05/16/23 04:00 Pulse Ox 100 05/16/23 04:00 O2 Del Method Room Air 05/16/23 04:00 Pain score (VAS): 5 I/O: Intake & Output 05/15/23 05/16/23 05/16/23 23:59 07:59 15:59 Intake Total 400 Output Total 400 800 Balance -400 -400 Post-procedural complaints: none Patient feedback: Patient satisfied with anesthetic care.
--- NOTE | 2023-05-16 08:13 | WPDANLDNPN2 ---
Anes-Prog Note L&D-Neuraxial Date/Time: 05/16/23 08:13 Neuraxial medications: epidural PF morphine Opiod-related complaints: none Patient feedback: Patient satisfied with post-operative pain management.
[2023-05-16] MEDS: SIMETHICONE 80 MG TAB.CHEW PO (09:45)
[2023-05-16] MEDS: MULTIVIT/MIN/PREN/FOL AC/IRON TABLET 1 TAB PO (09:45)
[2023-05-16] MEDS: DOCUSATE SODIUM 100 MG CAPSULE PO (09:45)
[2023-05-16 11:45] VITALS: BP 129/77; PULSE 83; RESP 18; TEMP 36.3; O2SAT 99
--- NOTE | 2023-05-16 16:37 | PC.NURSE ---
[id number] Primary RN reported that mother is on the plan. Introductions were made, then consulted with patient to assess needs related to . Mother led the conversation with her?plans to feed?her , the?experience so far and her Primary RN Yanira has been assisting. Resources provided for inpatient and outpatient services with the feeding sheet, mom/baby guide and name written on the white board. Mother voiced understanding of information and will call if there is a request for assistance. Primary RN is aware of the visit.
[2023-05-16 20:00] VITALS: BP 141/80; PULSE 92; RESP 16; RESP 18; TEMP 36.9; O2SAT 100
[2023-05-16] MEDS: LORATADINE 10 MG TABLET (20:53)
[2023-05-16] MEDS: HYDROcodone/acetaminophen (*CRX) 10-325 MG TABLET 1 TAB PO (23:39)
[2023-05-17] VITALS (7 sets, daily range): BP systolic 125–148; BP diastolic 65–90; PULSE 84–98; RESP 16–18; TEMP 36.7–37.7; O2SAT 97–100
[2023-05-17] MEDS: HYDROcodone/acetaminophen (*CRX) 10-325 MG TABLET 1 TAB PO ×4 (02:59→12:50)
--- NOTE | 2023-05-17 07:52 | PM.OBPNVD ---
OB - PN: Subj Subjective Date/time seen: 05/17/23 07:52 Patient comments: no complaints and pain well controlled baby status: doing well OB - PN: Obj Data Labs 05/16/23 02:51 OB - PN A/P Plan day: 2 Plan: routine care Time Spent With Patient Time: Total time spent is greater than 50% in coordination of care (as documented) at patient's floor/unit and/or counseling patient: Exam Narrative: inc c/d/i : Bimanual exam- vagina & uterus: other (Uterus firm, nt @U)
[2023-05-17] MEDS: IBUPROFEN 600 MG TABLET PO (09:15)
[2023-05-17] MEDS: MULTIVIT/MIN/PREN/FOL AC/IRON TABLET 1 TAB PO (09:15)
[2023-05-17] MEDS: DOCUSATE SODIUM 100 MG CAPSULE PO (09:15)
[2023-05-17] MEDS: SIMETHICONE 80 MG TAB.CHEW PO (09:15)
--- NOTE | 2023-05-17 18:26 | PC.NURSE ---
[id number] Consulted with patient to assess needs related to . Mother led conversation with her experience with feeding baby so far using the plan that was initiated by the Primary RN yesterday. Mother works well with her with encouragement. Flange assessment and nipple measurement was done and the flange size provided is not appropriate. Discussed the flange fit using a picture handout, resources for her personal pump and recommended hand expression instead of risking injury with the pump. Educated mother on nipple stretching and we practiced the skill of hand expression. Reviewed working with , supporting breast and how to protect the nipples with an optimal deep latch, good positioning, and good hand washing. Encouraged understanding the benefits of skin to skin, responding to feeding cues, frequencies of feeding 8-12 times in 24 hours (approximately 2-3 hours), duration of feedings, milk production, intake/output feeding sheet and signs of adequate intake encouraging swallowing at the breast. Reviewed positioning and alignment, supporting breast, off-centered (asymmetrical latch) and leading with the chin with big, open, wide gape. At the first few attempt held the nipple in the mouth looking around not demonstrating efforts of understanding to suck the breast. After a few attempts we were able to stimulate the suck reflex using the teacup and sandwich hold combined and the infant practiced effective nursing. After a 5 minute practice on/ off the breast optimally infant became fussy and laid at the breast not attempting to latch. Mother was encouraged to practice gentle nipple stretching, breast massage, milk shake and the skill of hand expression. RN assisted in teaching father of the baby how to pace bottle feed to foster breast focus. Mother was encouraged to protect her milk supply and practice to strengthen 's jaws for . Nipple care reviewed with optimal latch, good positioning and using clean hands when feeding her infant and touching her breast. We discussed mother's medical health of PCOS, primary C/S and how that may or may not delay the milk or reduce the milk supply. Reiterated how to protect the milk with demand for supply. Parents plan to order the correct flange size for their personal pump. Resources used to facilitate learning were used from the visual handout/QR codes/ tool/mom and baby guide. Encouraged calling for assistance if pumping is painful. Mother voiced understanding of the education shared, to call for assistance if the infant does not latch or if there is discomfort with . Reported to the primary RN.
[2023-05-18] VITALS: BP 132/86; PULSE 89
[2023-05-18] MEDS: HYDROcodone/acetaminophen (*CRX) 10-325 MG TABLET 1 TAB PO ×3 (00:40→07:33)
[2023-05-18 04:00] VITALS: BP 133/79; PULSE 93
[2023-05-18 07:30] VITALS: BP 145/80; PULSE 94; RESP 18; TEMP 36.9; O2SAT 100
[2023-05-18] MEDS: IBUPROFEN 600 MG TABLET PO (07:32)
[2023-05-18] MEDS: DOCUSATE SODIUM 100 MG CAPSULE PO (07:33)
[2023-05-18] MEDS: MULTIVIT/MIN/PREN/FOL AC/IRON TABLET 1 TAB PO (07:33)
--- NOTE | 2023-05-18 09:49 | PM.OBPNVD ---
OB - PN: Subj Subjective Date/time seen: 05/18/23 09:49 Patient comments: no complaints and pain well controlled baby status: doing well OB - PN: Obj Data Labs 05/16/23 02:51 OB - PN A/P Assessment and Plan (1) Pre-eclampsia affecting childbirth: Code(s): O14.94 - Unspecified pre-eclampsia, complicating childbirth Status: Acute Assessment and Plan: VSS diuresis started Plan day: 3 Plan: routine care and discharge home Comments: plans condoms for bc Time Spent With Patient Time: Total time spent is greater than 50% in coordination of care (as documented) at patient's floor/unit and/or counseling patient: Exam Narrative: inc c/d/i : Bimanual exam- vagina & uterus: other (Uterus firm, nt @U)
--- NOTE | 2023-05-18 09:51 | P.DS_ITS ---
DS: Admitting Diagnosis Discharge Date 05/18/23 Admitting Diagnosis IUP 37 3/7 wks for MIL secondary to preeclampsia GDMA2 DS: Discharge Diagnosis Discharge Diagnosis (1) Gestational diabetes mellitus (GDM) affecting : Code(s): O24.419 - Gestational diabetes mellitus in , unspecified control Status: Acute (2) Pre-eclampsia affecting childbirth: Code(s): O14.94 - Unspecified pre-eclampsia, complicating childbirth Status: Acute (3) delivery delivered: Code(s): O82 - Encounter for delivery without indication Status: Acute OB - DS: Summary OB Procedures : NST, PIH Mgmt, Ultrasound and Other (diabetes management) OB Procedures Intrapartum: (emergent due to bradycardia) low cervical, transverse OB Procedures: : None Peripartum Data Delivery Method: Section Procedures: Procedures Operation Date: 05/15/23 13:00 Actual Procedure Side Surgeon p Section Josh Haley MD complications: none Status at Discharge Functional status at discharge: independent ambulation Overall status at discharge: patient is progressing back to baseline Time Spent with Patient Time attestation: Total time spent providing and/or coordinating discharge services: DS: Data Data Completed and Pending Pending studies at discharge: Pending at discharge 05/15/23 14:44 Surgical [PTH] Routine Discharge Plan Discharge Attending physician on discharge: Rupal Barrientos Discharging Clinician: Rupal Barrientos Anticipated Discharge Date/Time: 05/18/23 09:53 Patient Disposition: Home, Self-Care Activity: may shower, may drive after 2 weeks and pelvic rest Diet: regular Wound Care Instructions: incision open to air Patient Instructions: Antibiotic Form Stand Alone Forms: General Discharge Information Follow-up/Referrals: Rupal Barrientos MD [Physician] - 1 Week (6 wk) Discharge Medications: New hydrocodone-acetaminophen 5-325 mg Tablet 1 tablet PO Q6H PRN (Reason: Moderate Pain (4-6)) Qty: 20 0RF ibuprofen 600 mg Tablet 600 mg PO Q6H PRN (Reason: Cramping) Qty: 30 0RF Continued PNV cmb#95-ferrous fumarate-FA [] 28 mg iron- 800 mcg Tablet 1 tablet PO DAILY ergocalciferol (vitamin D2) 1,250 mcg (50,000 unit) capsule 1,250 mcg PO [id number] Discontinued aspirin 81 mg Tablet,Chewable 81 mg PO DAILY Novolin N FlexPen 100 unit/mL (3 mL) insulin pen 30 unit SUBCUT HS Date of admission: 05/14/23 16:42 Primary Care Provider: PHYSICIAN,SENIOR ANIMAL TRAINER Admitting Provider: Rupal Barrientos Attending physician on admission: Rupal Barrientos Condition: Stable
[2023-05-20 11:29] VITALS: BP 146/69; PULSE 82; RESP 18; TEMP 36.9; O2SAT 100
== END 2023-05-18 11:25 | disposition home or self-care (01) | DRG 788 ==
LOC: ANHLDR 17:23 → ANHOB2 05-15 17:23
PROVIDERS: Advanced Practice Midwife; Obstetrics & Gynecology; Admitting Provider Obstetrics & Gynecology Gynecology; Visit Provider Obstetrics & Gynecology Gynecology
PROC: 10D00Z1 Extraction of Products of Conception, Low, Open Approach (ICD-10-PCS; CPT 59514; principal; 2023-05-15 13:00)
DX: O24.429 Gestational diabetes mellitus in childbirth, unspecified control (principal); Z37.0 Single live birth; Z3A.37 37 weeks gestation of pregnancy; O14.94 Unspecified pre-eclampsia, complicating childbirth; O69.81X0 Labor and delivery complicated by cord around neck, without compression, not applicable or unspecified; O36.8330 Maternal care for abnormalities of the fetal heart rate or rhythm, third trimester, not applicable or unspecified; D25.2 Subserosal leiomyoma of uterus; O99.892 Other specified diseases and conditions complicating childbirth; O99.284 Endocrine, nutritional and metabolic diseases complicating childbirth; E28.2 Polycystic ovarian syndrome; O99.344 Other mental disorders complicating childbirth; F32.A Depression, unspecified; F41.9 Anxiety disorder, unspecified
CPT/HCPCS: 36415; 74018; 82948; 85025; 85055; 86592; 86850; 86900; 86901; 88307; A9270; J1815; J1885; J2175; J2274; J2371; J2405; J2590; J2795; J3010; J7030; J7120

== ENCOUNTER 2023-05-21 16:51 | Outpatient (CLI) | payer BC, SELFPAY ==
[2023-05-21 17:13] VITALS: BP 143/79; PULSE 74
[2023-05-21 17:16] VITALS: BP 147/68; PULSE 80
[2023-05-21 17:31] VITALS: BP 143/69; PULSE 81
[2023-05-21 17:46] VITALS: BP 137/71; PULSE 85
--- NOTE | 2023-05-21 17:50 | PC.NURSE ---
called Dr. Barrientos notified pt visit for elevated BP. BP updated. okay to discharge.
== END 2023-05-21 18:05 | disposition home or self-care (01) ==
LOC: ANHOBOP 16:59 → ANHLDR 17:01
PROVIDERS: Visit Provider Obstetrics & Gynecology Gynecology
DX: O13.9 Gestational [pregnancy-induced] hypertension without significant proteinuria, unspecified trimester (principal); Z3A.00 Weeks of gestation of pregnancy not specified
CPT/HCPCS: 99199

== ENCOUNTER 2023-05-22 16:08 | Outpatient (CLI) | payer BC, SELFPAY ==
[2023-05-22 16:37] LABS: Hematocrit 32.7 % (37.0-47.0); Hemoglobin 10.9 g/dL (12.0-15.0); Mean Corpuscular HGB Conc 33.3 g/dl (32-36); Mean Corpuscular Hemoglobin 29.2 pg (26-34); Mean Corpuscular Volume 87.7 fl (80-100); Mean Platelet Volume 10.7 fl (7.4-10.4); Platelet Count Result 374 k/mm3 (150-375); Red Blood Count 3.73 M/mm3 (4.2-5.4); Red Cell Distribution Width 13.8 % (11.5-14.5); White Blood Count 10.7 K/mm3 (4.5-10.0)
[2023-05-22 16:47] LABS: Alanine Aminotransferase 34 U/L (6-35); Alkaline Phosphatase 110 U/L (38-126); Anion Gap 9 mmol/L (8-16); Aspartate Amino Transferase 32 U/L (14-36); Bilirubin,Total 0.2 mg/dL (0.2-1.3); Blood Urea Nitrogen 16 mg/dL (7-17); Calcium 9.6 mg/dL (8.4-10.2); Carbon Dioxide 25 mmol/L (22-30); Chloride 106 mmol/L (98-107); Estimated Glomerular Filt Rate > 60; Glucose 110 mg/dL (65-110); Potassium 3.7 mmol/L (3.4-5.0); Sodium 140 mmol/L (137-145); Uric Acid 5.4 mg/dL (2.5-7.5)
== END 2023-05-22 16:09 | disposition home or self-care (01) ==
PROVIDERS: Visit Provider Obstetrics & Gynecology Gynecology
DX: Z87.59 Personal history of other complications of pregnancy, childbirth and the puerperium (principal)
CPT/HCPCS: 36415; 80053; 84550; 85027